=== PATIENT | male | born 1980 | race Caucasian/White ===

== ENCOUNTER 2019-01-06 10:37 | Emergency (ER) | payer SELFPAY ==
--- NOTE | 2019-01-06 10:44 | EDM.PDOC ---
<Debbie Guevara - Last Filed: 01/06/19 19:54> ED HPI GENERAL MEDICAL PROBLEM - General Chief Complaint: Genitourinary Problem Stated Complaint: FREQUENT URINATION Time Seen by Provider: 01/06/19 10:40 Source of Information: Reports: Patient History Limitations: Reports: No Limitations - History of Present Illness INITIAL COMMENTS - FREE TEXT/NARRATIVE: HISTORY AND PHYSICAL: History of present illness: Patient left ED without being seen by provider Review of systems: As per history of present illness and below otherwise all systems reviewed and negative. Past medical history: As per history of present illness and as reviewed below otherwise noncontributory. Surgical history: As per history of present illness and as reviewed below otherwise noncontributory. Social history: No reported history of drug or alcohol abuse. Family history: As per history of present illness and as reviewed below otherwise noncontributory. Physical exam: General: Patient sitting comfortably in no acute distress and nontoxic appearing HEENT: Atraumatic, normocephalic, pupils reactive, negative for conjunctival pallor or scleral icterus, mucous membranes moist, throat clear, neck supple, nontender, trachea midline. No meningeal signs. Lungs: Clear to auscultation, breath sounds equal bilaterally, chest nontender. Heart: S1S2, regular, negative for clicks, rubs, or overt murmur. Abdomen: Soft, nondistended, nontender. Negative for masses or hepatosplenomegaly. Negative for costovertebral tenderness. Pelvis: Stable nontender. Genitourinary: Deferred. Rectal: Deferred. Extremities: Atraumatic, negative for cords or calf pain. Neurovascular unremarkable. Neuro: Awake, alert, oriented. Cranial nerves II through XII unremarkable. Cerebellum unremarkable. Motor and sensory unremarkable throughout. Exam nonfocal. Notes: Diagnostics: [] Therapeutics: [] Prescriptions: Impression: [] Plan: [] Definitive disposition and diagnosis as appropriate pending reevaluation and review of above. - Related Data Allergies Allergy/AdvReac Type Severity Reaction Status Date / Time No Known Allergies Allergy Verified 06/09/16 20:46 Past Medical History - Past Health History Medical/Surgical History: Denies Medical/Surgical History Musculoskeletal History: Reports: None - Infectious Disease History Infectious Disease History: Reports: None ED ROS GENERAL - Review of Systems Review Of Systems: ROS reveals no pertinent complaints other than HPI. ED EXAM, RENAL/ - Physical Exam Exam: See Below (see dictation) Departure - Departure Time of Disposition: 19:55 Disposition: Home, Self-Care 01 Clinical Impression: Eloped from emergency department - Discharge Information Referrals: PCP,None [Primary Care Provider] - Forms: ED Department Discharge <Rosita Carpio - Last Filed: 01/07/19 07:50> ED HPI GENERAL MEDICAL PROBLEM - History of Present Illness INITIAL COMMENTS - FREE TEXT/NARRATIVE: Dr. Carpio dictating a quick addendum note as this chart was opened by the PA when the patient initially was placed on the tracking board and when we went to evaluate the patient he had told nursing that he would like to leave and go back to work and would return later. The patient was never evaluated by a provider only by the triage nurse.
== END 2019-01-06 10:56 | disposition home or self-care (01) ==
LOC: MW.ED 10:37
DX: Z53.21 Procedure and treatment not carried out due to patient leaving prior to being seen by health care provider (principal)
CPT/HCPCS: 99281

== ENCOUNTER 2019-12-26 03:50 | Emergency (ER) | payer SELFPAY ==
[2019-12-26] MEDS ORDERED: Albuterol/Ipratropium 3.0-0.5 MG/3 ML Neb Soln NEB ONE (04:02)
[2019-12-26] MEDS ORDERED: Dexamethasone 10 MG/ML SDV IM ONE (04:03)
--- NOTE | 2019-12-26 04:27 | EDM.PDOC ---
ED HPI GENERAL MEDICAL PROBLEM - General Chief Complaint: ENT Problem Stated Complaint: SINUS INFECTION Time Seen by Provider: 12/26/19 04:00 Source of Information: Reports: Patient - History of Present Illness INITIAL COMMENTS - FREE TEXT/NARRATIVE: The patient is a 39-year-old male who presents to the ER because he feels like he has a sinus congestion. He states that this started over the weekend approximately 4 days ago with a lot of nasal congestion, coughing, and trouble breathing. He feels like his face has a lot of pressure and his ears feel full. He has tried some wdfz-eke-[id number] medications but he does not seem to be getting better. headache Pain Score (Numeric/FACES): 8 - Related Data Allergies Allergy/AdvReac Type Severity Reaction Status Date / Time No Known Allergies Allergy Verified 12/26/19 04:00 Home Meds: Home Meds Fluticasone Propionate [Flonase] 16 gm NASBOTH Q12HR PRN #1 bottle 12/26/19 [Rx] Past Medical History - Past Health History Medical/Surgical History: Denies Medical/Surgical History Musculoskeletal History: Reports: None - Infectious Disease History Infectious Disease History: Reports: Chicken Pox Social & Family History - Family History Family Medical History: Noncontributory - Tobacco Use Smoking Status *Q: Never Smoker Second Hand Smoke Exposure: No - Caffeine Use Caffeine Use: Reports: Coffee - Recreational Drug Use Recreational Drug Use: No ED ROS ENT - Review of Systems Review Of Systems: See Below (Positive for nasal congestion, positive for cough , positive for shortness of breath, positive for facial pressure, positive for bilateral ear discomfort, all other Positives and pertinent negatives as per HPI. All other pertinent systems were reviewed and are negative) ED EXAM, ENT - Physical Exam Exam: See Below Text/Narrative:: Constitutional: Nontoxic but looks like he does not feel well, extremely nasally congested with a wheezy cough. HEENT: Normocephalic, Atraumatic, pupils equal round reactive to light, EOMI, no periorbital or facial swelling, nasal turbinates bilaterally are extremely edematous and inflamed, oropharynx is clear, tympanic membranes bilaterally have clear effusions but no purulence, there are some small amounts of telangiectasias Neck: Normal range of motion, No stridor, trachea midline Respiratory: Mild shortness of breath with good aeration throughout but bilateral expiratory wheezes throughout without wheezes, rales or rhonchi, no tachypnea Cardiovascular: Deferred Gastrointestinal: Deferred Genital / Urinary: Deferred Musculoskeletal: All four extremities present and atraumatic Back: FROM Integument: Warm, Dry, Color is ethnicity appropriate, No rash. Neuro: Alert, Awake, No focal deficits noted Psych: Affect, Judgement, mood normal Course - Vital Signs Text/Narrative:: History and exam are consistent with a viral syndrome with an associated exacerbation of what I suspect is mild asthma. Talking to the patient further although he has never officially been diagnosed with asthma, the patient when he gets sick intermittently needs respiratory treatments. Antibiotics are warranted but the patient will be given a DuoNeb respiratory treatment in the ER, along with Decadron 20 mg IM, and a prescription for an albuterol inhaler and Flonase nasal spray. Last Recorded V/S: Last Vital Signs Temp 35.7 C L 12/26/19 03:53 Pulse 91 12/26/19 03:53 Resp 18 12/26/19 03:53 BP 164/107 H 12/26/19 03:53 Pulse Ox 97 12/26/19 03:53 - Orders/Labs/Meds Orders: Active Orders 24 hr Category Date Time Status RT Aerosol Therapy [RC] ASDIRECTED Care 12/26/19 04:02 Active RT Post Treatment Assessment [RC] Click to Edit Care 12/26/19 04:31 Active RT Pre-Treatment Assessment [RC] Click to Edit Care 12/26/19 04:31 Active Albuterol [Proventil HFA] Med 12/26/19 04:30 Active See Dose Instructions INH Q4H Medication Orders Albuterol (Proventil Hfa) 0 gm INH Q4H ALLYSSA Meds: Medications Generic Name Dose Route Start Last Admin Trade Name Freq PRN Reason Stop Dose Admin Albuterol 0 gm 12/26/19 04:30 Proventil Hfa INH Q4H ALLYSSA Discontinued Medications Generic Name Dose Route Start Last Admin Trade Name Freq PRN Reason Stop Dose Admin Albuterol/Ipratropium 6 ml 12/26/19 04:02 12/26/19 04:09 Duoneb 3.0-0.5 Mg/3 Ml NEB 12/26/19 04:03 6 ml ONETIME ONE Administration Dexamethasone 20 mg 12/26/19 04:03 02/18/20 04:07 Dexamethasone IM 12/26/19 04:04 20 mg ONETIME ONE Administration Departure - Departure Time of Disposition: 04:41 Disposition: Home, Self-Care 01 Condition: Good Clinical Impression: Asthma attack - Discharge Information Prescriptions: Fluticasone Propionate [Flonase] 16 gm NASBOTH Q12HR PRN #1 bottle PRN Reason: Congestion Referrals: PCP,None [Primary Care Provider] - Forms: ED Department Discharge Additional Instructions: VIRAL SYNDROME This appears to be a viral syndrome. They are highly common and variable, causing fevers, colds, coughs, headaches, vomiting, diarrhea, etc. Antibiotics don't work on viruses, and they need to run their course. On average these last 7-10 days, depending upon the virus. There are some that even last up to several weeks. Rest, drink plenty of clear fluids, especially water. You want our urine to be clear to a light yellow. Ibuprofen 800 mg and Tylenol 1000 mg may be taken at the same time every 6 hours as needed for fevers and discomfort. Upper respiratory congestion and sore throats can be improved with cool liquids , humidifiers, cough drops with menthol, honey, tea with honey, and over-the- counter decongestants. Return to the ER if you develop difficulty breathing, or any other concerns. Sepsis Event Note - Evaluation Sepsis Screening Result: No Definite Risk - Focused Exam Vital Signs: Vital Signs Temp Pulse Resp BP Pulse Ox 12/26/19 03:53 35.7 C L 91 18 164/107 H 97 Date Exam was Performed: 12/26/19 Time Exam was Performed: 04:41 - My Orders Last 24 Hours: My Active Orders 12/26/19 04:02 RT Aerosol Therapy [RC] ASDIRECTED 12/26/19 04:30 Albuterol [Proventil HFA] See Dose Instructions INH Q4H 12/26/19 04:31 RT Post Treatment Assessment [RC] Click to Edit RT Pre-Treatment Assessment [RC] Click to Edit - Assessment/Plan Last 24 Hours: My Active Orders 12/26/19 04:02 RT Aerosol Therapy [RC] ASDIRECTED 12/26/19 04:30 Albuterol [Proventil HFA] See Dose Instructions INH Q4H 12/26/19 04:31 RT Post Treatment Assessment [RC] Click to Edit RT Pre-Treatment Assessment [RC] Click to Edit
[2019-12-26] MEDS ORDERED: Albuterol 6.7 GM Inhaler INH SCH (04:30)
[2019-12-26 04:51] VITALS: PULSE 100
[2019-12-26 05:05] VITALS: BP 164/97
== END 2019-12-26 04:55 | disposition home or self-care (01) ==
LOC: MW.ED 03:50
DX: J45.909 Unspecified asthma, uncomplicated (principal)
CPT/HCPCS: 94640; 96372; 99283; A9270; J1100; J7620-GY

== ENCOUNTER 2024-03-06 06:52 | Emergency (ER) | payer BC ==
[2024-03-06] MEDS: Cyclobenzaprine 10 MG Tab PO ONE (07:18)
[2024-03-06] MEDS: Ketorolac 60 MG/2 ML SDV IM ONE (07:19)
[2024-03-06] MEDS: Acetaminophen/HYDROcodone 325-10 MG Tab PO ONE (07:19)
[2024-03-06 08:06] VITALS: BP 150/99; PULSE 80
== END 2024-03-06 08:07 | disposition home or self-care (01) ==
LOC: MW.ED 06:52
DX: M54.41 Lumbago with sciatica, right side (principal); Z79.899 Other long term (current) drug therapy; Z75.8 Other problems related to medical facilities and other health care
CPT/HCPCS: 96372; 99283; A9270; J1885; 93010